=== PATIENT | male | born 2000 | race Caucasian/White ===

== ENCOUNTER 2022-07-11 00:42 | Outpatient (CLI) | payer SELFPAY | END 2022-07-11 00:43 | disposition critical access hospital (66) | LOC: EMS 00:42 | DX: S40.811A Abrasion of right upper arm, initial encounter (principal); S40.211A Abrasion of right shoulder, initial encounter; S00.81XA Abrasion of other part of head, initial encounter; V48.5XXA Car driver injured in noncollision transport accident in traffic accident, initial encounter; Y93.89 Activity, other specified; Y92.414 Local residential or business street as the place of occurrence of the external cause | CPT/HCPCS: A0425; A0429 ==

== ENCOUNTER 2022-07-11 01:10 | Emergency (ER) | payer OTHER ==
[2022-07-11] MEDS ORDERED: BACITRACIN ZINC OINT 1 PACKET TOP STA ×2 (01:17)
[2022-07-11] MEDS ORDERED: TETANUS/DIPHTHERIA/PERTUSSIS 0.5 ML SYRINGE IM ONE (01:20)
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
[2022-07-11 02:29] VITALS: BP 125/74
== END 2022-07-11 02:28 | disposition home or self-care (01) ==
LOC: EDUNIT# → ED 01:10
DX: Z02.89 Encounter for other administrative examinations (principal); T14.8XXA Other injury of unspecified body region, initial encounter; V49.9XXA Car occupant (driver) (passenger) injured in unspecified traffic accident, initial encounter; F10.10 Alcohol abuse, uncomplicated; Z23 Encounter for immunization; Z71.85 Encounter for immunization safety counseling
CPT/HCPCS: 90471; 90715; 99283; A9270